=== PATIENT | male | born 1980 | race Caucasian/White ===

== ENCOUNTER 2020-12-02 07:07 | Emergency (ER) | payer SELFPAY ==
[~2020-12-02] VITALS: Ht 180.3 cm; Wt 87.0 kg
[2020-12-02 07:16] VITALS: BP 154/98
[2020-12-02] MEDS ORDERED: TETRACAINE 0.5% OPHTH SOLUTION 4ML BOTTLE. OU ONE (07:30)
[2020-12-02] MEDS ORDERED: FLUORESCEIN OPHTH TEST STRIP. OS ONE (07:30)
[2020-12-02] MEDS ORDERED: AMOX1TAB61 PO (07:44)
[2020-12-02] MEDS ORDERED: POLY10DR EACHEYE (07:44)
--- NOTE | 2020-12-02 07:45 | PHYS DOC ---
Past Medical History Past Medical History: No Pertinent History Past Surgical History: No Surgical History Smoking Status: Current Every Day Smoker Alcohol Use: None General Adult EDM: Chief Complaint: EYE PROBLEMS HPI: HPI: 40-year-old male who denies any past medical history presents to the ED with complaints of nasal congestion for the past 5 to 6 days reports a spread to both his eyes now with yellow eye discharge and irritation for the past 2 days stat ing "if my congestion would go away I feel like the eye infection would go away." Reports h/o similar infection in past - can't recall his last eye appointment/outpt followup/who he follows up with. Denies blurry vision, vision loss, epiphora, foreign body sensation, double vision, or photophobia. Wears contact lenses and currently has them in place. Works at a gas [employer]. Does not believe he's had covid. No recent h/o shingles outbreak or urethral discharge. Review of Systems: Review of Systems: Constitutional: Denies fever or chills. [] Eyes: Denies vision loss or double vision HENT: Denies nasal congestion or sore throat. [] Respiratory: Denies cough or shortness of breath. [] Cardiovascular: Denies chest pain or edema. [] GI: Denies abdominal pain, nausea, vomiting, bloody stools or diarrhea. [] : Denies dysuria or urethral discharge Musculoskeletal: Denies back pain or joint pain. [] Integument: Denies rash, diaphoresis Neurologic: Denies headache, neck pain, focal weakness or sensory changes. [] Endocrine: Denies polyuria or polydipsia. [] Lymphatic: Denies swollen glands. [] Psychiatric: Denies depression or anxiety. [] Heart Score: C/O Chest Pain: No Risk Factors: Risk Factors: DM, Current or recent (<one month) smoker, HTN, HLP, family history of CAD, obesity. Risk Scores: Score 0 - 3: 2.5% MACE over next 6 weeks - Discharge Home Score 4 - 6: 20.3% MACE over next 6 weeks - Admit for Clinical Observation Score 7 - 10: 72.7% MACE over next 6 weeks - Early Invasive Strategies Current Medications: Current Medications Medications (Trade) Dose Ordered Sig/Jennifer Start Time Stop Time Status Last Admin Dose Admin Fluorescein Sodium (Ful-Gill) 1 strip 1X ONCE 12/02/20 07:30 12/02/20 07:31 DC Tetracaine HCl (Tetracaine) 1 drop 1X ONCE 12/02/20 07:30 12/02/20 07:34 DC Allergies: Allergies: Allergies Coded Allergies Type Severity Reaction Last Updated Verified No Known Drug Allergies 12/02/20 No Physical Exam: PE: Constitutional: Well developed, well nourished, no acute distress, non-toxic appearance. HENT: Normocephalic, atraumatic, Eyes: PERRLA 3mm bl, EOMI, bilateral yellow mucopurulent discharge worse over left eye than right, bilateral conjunctival injection with no ciliary flush, no hyphema or empyema, nasal voice with maxillary sinus pressure, left upper eyelid swollen/no rash, no dendritic lesions or ulcers with ramires lamp exam Neck: Normal range of motion, supple, no nuchal rigidity Cardiovascular: S1/2 present, regular rhythm Lungs & Thorax: Speaking in full sentences, bilateral equal chest rise, no tachypnea or increased work of breathing Skin: Warm, dry, no erythema, no rash. [] Neurologic: Alert and oriented X 3, normal motor function, normal sensory function, no focal deficits noted. [] Psychologic: Affect normal, judgement normal, mood normal. [] Current Patient Data: Vital Signs: Vital Signs Date Time Temp Pulse Resp B/P (MAP) Pulse Ox O2 Delivery O2 Flow Rate FiO2 12/02/20 07:16 97.8 92 16 154/98 (116) 98 Room Air 97.8 EKG: EKG: [] Radiology/Procedures: Radiology/Procedures: [] Course & Med Decision Making: Course & Med Decision Making Pertinent Labs and Imaging studies reviewed. (See chart for details) Concern for bilateral conjunctivitis, likely bacterial in the setting of sinusitis, no blurry vision or vision loss. Will cover with oral antibiotics, Augmentin po and Polytrim eye drops to both eyes (consider early preseptal cellulitis). I recommended removing contact lenses until infection is fully resolved with ophthalmology evaluation within 24 hours. Work note given for the next 2 days. I offered Covid testing given differential of viral conjunctivitis (low suspicion given mucopurulent discharge bilaterally). Will discharge home with strict ED return precautions were given for blurry vision, vision loss, severe pain, worsening infection or facial rash. Encouraged urgent outpatient follow-up with PMD and ophthalmology. Life-threatening processes were considered but are low suspicion at this time, given history, physical exam and ED workup. Pt was educated on all prescription medications and adverse effects. All patient's questions were answered and pt was stable at time of discharge. Life/limb-threatening differential includes but is not limited to, acute angle- closure glaucoma, uveitis, corneal abrasion, CRVO/CRAO, PRES, retinal detachment, vitreous hemorrhage, temporal arteritis, optic neuritis, high- altitude retinopathy foreign body, globe rupture, episcleritis, corneal ulcer, traumatic iritis, hyphema or empyema, orbital cellulitis, orbital hematoma, lens dislocation, orbital wall fracture or toxidrome (digoxin, methanol, anticholinergic, hallucinogenic, etc). I spoken with the patient and her caregivers. I explained the patient's condition, diagnoses and treatment plan based on the information available to me at this time. I have answered the patient and her caregiver's questions and addressed any concerns. The patient and her caregivers have a good understanding of patient's diagnosis, condition and treatment plan as can be expected at this point. Vital signs have been stable. Patient's condition is stable and appropriate for discharge from the emergency department. Patient will pursue further outpatient evaluation with primary care physician or other designated or consulting physician as outlined in the discharge instructions. The patient and/or caregivers are agreeable to this plan of care and follow-up instructions have been explained in detail. The patient and/or c aregivers have received these instructions in written form and have expressed an understanding of the discharge instructions. The patient and/or caregivers are aware that any significant change of condition or worsening of symptoms should prompt immediate return to this or the closest emergency department or call to 911. Daniel Disclaimer: Daniel Disclaimer: This electronic medical record was generated, in whole or in part, using a voice recognition dictation system. Departure Departure Impression: Primary Impression: Bilateral conjunctivitis Additional Impression: Acute sinusitis Disposition: 01 DC HOME SELF CARE/HOMELESS Condition: STABLE Referrals: NO PCP (PCP) Follow-up with your primary care physician within 1 week or FOLLOW UP WITH FAMILY MEDICINE: Family Medicine Address: [address] [place] [id number] Patient Instructions: Bacterial Conjunctivitis, Conjunctivitis (Viral and Bacterial), Sinusitis Additional Instructions: FOLLOW UP WITH OPTHALMOLOGY: within 24 hours [facility] Address: [address] [place] [id number] Scripts Amoxicillin/Potassium Clav (AUGMENTIN 120-125 TABLET) 1 Each Tablet 1 TAB PO Q12HR for 10 Days, #20 TAB Prov: RENA CANDELARIA DO 12/02/20 Polymyxin B Sulf/Trimethoprim (POLYTRIM EYE DROPS) 10 Ml Drops 2 DROP EACHEYE Q6HRS for 7 Days, #10 ML Prov: RENA CANDELARIA DO 12/02/20 RENA CANDELARIA DO Dec 02, 2020 07:45
== END 2020-12-02 07:55 | disposition home or self-care (01) ==
LOC: ER 07:07
DX: J01.90 Acute sinusitis, unspecified (principal); H10.9 Unspecified conjunctivitis; R09.81 Nasal congestion; F17.200 Nicotine dependence, unspecified, uncomplicated
CPT/HCPCS: 99283